=== PATIENT | male | born 1960 | race Caucasian/White ===

== ENCOUNTER 2016-04-09 08:00 | Outpatient (CLI) | payer MEDICARE, MEDICAID | END 2016-04-09 08:01 | disposition home or self-care (01) | DX: R39.9 Unspecified symptoms and signs involving the genitourinary system (principal); R39.11 Hesitancy of micturition ==

== ENCOUNTER 2016-05-22 10:15 | Emergency (ER) | payer MEDICARE, MEDICAID | END 2016-05-22 13:58 | disposition home or self-care (01) | DX: R39.12 Poor urinary stream (principal); R35.0 Frequency of micturition; R53.83 Other fatigue; R63.4 Abnormal weight loss; I10 Essential (primary) hypertension; F17.200 Nicotine dependence, unspecified, uncomplicated ==

== ENCOUNTER 2016-11-13 13:14 | Outpatient (CLI) | payer MEDICARE, MEDICAID ==
[2016-11-13] MEDS ORDERED: ALBUTEROL NEB 2.5 MG/3 ML INH ONE (14:00)
== END 2016-11-13 13:15 | disposition home or self-care (01) ==
LOC: RT 13:14
PROVIDERS: ATTEND Nurse Practitioner Family
DX: R06.02 Shortness of breath (principal); F17.210 Nicotine dependence, cigarettes, uncomplicated
CPT/HCPCS: 94060; J7613; 94640

== ENCOUNTER 2017-06-17 09:43 | Outpatient (CLI) | payer MEDICARE, MEDICAID ==
[2017-06-17 17:48] LABS: BASOPHILS % (AUTO) 0.5 %; EOSINOPHILS # (AUTO) 0.3 10^3/uL (0.0-0.7); EOSINOPHILS % (AUTO) 3.6 %; HGB - HEMOGLOBIN 14.7 g/dL (14.0-18.0); LYMPHOCYTES # (AUTO) 1.6 10^3/uL (1.5-3.5); LYMPHOCYTES % (AUTO) 19.3 %; MEAN CORPUSCULAR HEMOGLOBIN 28.6 pg (27.0-31.0); MEAN CORPUSCULAR HGB CONC 33.1 g/dL (32.0-36.0); MEAN CORPUSCULAR VOLUME 86.3 fL (80.0-94.0); MEAN PLATELET VOLUME 9.3 fL (7.4-11.4); MONOCYTES # (AUTO) 0.6 10^3/uL (0.0-1.0); MONOCYTES % (AUTO) 6.8 %; NEUTROPHILS # (AUTO) 5.7 10^3/uL (1.5-6.6); NEUTROPHILS % (AUTO) 69.8 %; PLT - PLATELET COUNT 219 10^3/uL (130-450); RED BLOOD COUNT 5.14 10^6/uL (4.70-6.10); RED CELL DISTRIBUTION WIDTH 14.4 % (12.0-15.0); WHITE BLOOD COUNT 8.2 x10^3/uL (4.8-10.8)
[2017-06-17 17:50] LABS: ALBUMIN 4.5 g/dL (3.2-5.5); ALBUMIN/GLOBULIN RATIO 1.7 (1.0-2.2); ALKALINE PHOSPHATASE 51 IU/L (42-121); ALT ALANINE AMINOTRANSFERASE 15 IU/L (10-60); AST ASPARTATE AMINOTRANSFERASE 18 IU/L (10-42); BILIRUBIN,TOTAL 0.8 mg/dL (0.2-1.0); BUN - BLOOD UREA NITROGEN 14 mg/dL (6-20); CALCIUM 9.1 mg/dL (8.5-10.3); CARBON DIOXIDE - CO2 28 mmol/L (21-32); CHLORIDE 101 mmol/L (101-111); CHOL/HDL RATIO 4.3 (<5.0); CHOLESTEROL 176 mg/dL; CREATININE 0.8 mg/dL (0.6-1.2); GFR - MDRD 100 (>89); GLUCOSE 106 mg/dL (70-100); HDL CHOLESTEROL 41 mg/dL; LDL CHOLESTEROL,CALCULATED 118 mg/dL; LDL/HDL RATIO 2.9 (<3.6); SODIUM 135 mmol/L (135-145); TOTAL PROTEIN 7.1 g/dL (6.7-8.2); VLDL CHOLESTEROL 17 mg/dL
== END 2017-06-17 09:44 | disposition home or self-care (01) ==
LOC: LAB.F 09:43
PROVIDERS: ATTEND Nurse Practitioner Family
DX: I10 Essential (primary) hypertension (principal); Z12.5 Encounter for screening for malignant neoplasm of prostate; E78.2 Mixed hyperlipidemia
CPT/HCPCS: 36415; 80053; 80061; 84443; 85025; G0103; 83721; 84153

== ENCOUNTER 2017-06-21 08:00 | Outpatient (CLI) | payer MEDICARE, MEDICAID ==
[2017-06-21 18:03] LABS: PSA FREE 0.8 ng/mL (0.16-2.81)
[2017-06-21 18:04] LABS: PSA TOTAL 5.74 ng/mL (0.000-2.000)
== END 2017-06-21 08:01 ==
LOC: LAB.S 08:00
PROVIDERS: ATTEND Nurse Practitioner Family
DX: R97.20 Elevated prostate specific antigen [PSA] (principal)
CPT/HCPCS: 36415; 84154

== ENCOUNTER 2017-12-08 11:06 | Outpatient (CLI) | payer MEDICAID, MEDICARE ==
[2017-12-08 17:51] LABS: PSA FREE 0.84 ng/mL (0.16-2.81)
[2017-12-08 17:52] LABS: PSA TOTAL 5.37 ng/mL (0.000-2.000)
== END 2017-12-08 11:07 | disposition home or self-care (01) ==
LOC: LAB.F 11:06
PROVIDERS: ATTEND Nurse Practitioner Family
DX: R97.20 Elevated prostate specific antigen [PSA] (principal)
CPT/HCPCS: 36415; 84154

== ENCOUNTER 2017-12-27 21:38 | Outpatient (CLI) | payer MEDICARE | END 2017-12-27 21:39 | disposition critical access hospital (66) | LOC: EMS 21:38 | PROVIDERS: ATTEND Surgery | DX: R46.4 Slowness and poor responsiveness (principal); R09.89 Other specified symptoms and signs involving the circulatory and respiratory systems | CPT/HCPCS: A0425; A0427 ==

== ENCOUNTER 2017-12-27 22:07 | Observation (INO) | payer MEDICARE ==
[2017-12-27] MEDS ORDERED: FUROSEMIDE 40 MG/4 ML VIAL IVP STA (22:24)
--- NOTE | 2017-12-27 22:27 | ED Physician Documentation ---
PD HPI DYSPNEA - Stated complaint Stated Complaint: ALOC / LOWER EDEMA - Chief complaint Chief Complaint: Resp - History obtained from History obtained from: Patient, EMS - History of Present Illness Timing - onset: Today Timing - onset during: Rest Timing - duration: Minutes Timing - details: Abrupt onset, Still present Inciting event(s): Other Improved by: BiPAP / CPAP, Inhaler/neb Worsened by: Exertion, Coughing Associated symptoms: Cough, Diaphoresis, Bilateral edema Similar symptoms before: Has not had sx before Recently seen: Clinic - Additional information Additional information: 57-year-old male with a history of bipolar disorder has recently been into see the urologist about his weak urinary stream and is been put on tamsulosin. This evening he was found obtunded at his home with his roommate there. The patient last remembers watching TV drinking beer and smoking pot. He does state that he has had some chills recently but other otherwise has not been ill. He does have some twitching of his legs that he thinks might be related to his lithium. These seem to happen when he is tired. Medics picked the patient up at his house obtunded not breathing well they administered a DuoNeb treatment and placed him on CPAP which made a tremendous improvement. They noted rails bibasilar. Review of Systems Constitutional: reports: Chills. denies: Fever Eyes: denies: Decreased vision Ears: denies: Ear pain Nose: denies: Rhinorrhea / runny nose, Congestion Throat: reports: Dental pain / toothache (A bad tooth on the left lower). denies: Sore throat Cardiac: denies: Chest pain / pressure, Palpitations Respiratory: reports: Dyspnea, Cough GI: denies: Abdominal Pain, Nausea, Vomiting : reports: Other (stream has improved dramatically with the medication). denies: Dysuria, Frequency Skin: denies: Rash Musculoskeletal: reports: Extremity swelling (similar to always). denies: Neck pain, Back pain, Extremity pain Neurologic: denies: Generalized weakness, Focal weakness, Numbness PD PAST MEDICAL HISTORY - Past Medical History Past Medical History: Yes Cardiovascular: Congestive heart failure, Hypertension Respiratory: Sleep apnea Endocrine/Autoimmune: None GI: GERD Psych: Bipolar disorder - Past Surgical History Past Surgical History: Yes General: Cholecystectomy - Present Medications Home Medications: Ambulatory Orders Medication Instructions Recorded Confirmed Lisinopril 20 mg PO DAILY 05/21/14 07/27/14 Omeprazole 20 mg PO DAILY 05/21/14 07/27/14 Quetiapine Fumarate [Seroquel] 200 mg PO DAILY 05/21/14 05/22/16 Ziprasidone [Geodon] 80 mg PO BID 05/21/14 05/22/16 lamoTRIgine [Lamictal] 150 mg PO BID 05/21/14 07/27/14 Lisinopril 20 mg PO DAILY #60 tablet 07/27/14 05/22/16 Omeprazole 20 mg PO DAILY #60 capsule. 07/27/14 05/22/16 Quetiapine Fumarate [Seroquel] 3 tab PO QPM #180 tablet 07/27/14 Ziprasidone HCl [Geodon] 80 mg PO BID #120 capsule 07/27/14 lamoTRIgine [Lamictal] 150 mg PO BID #120 tablet 07/27/14 05/22/16 Cholecalciferol (Vitamin D3) 2,000 unit PO DAILY #90 capsule 05/22/16 [Vitamin D] Saw Alpha 160 mg PO DAILY #60 capsule 05/22/16 - Allergies Allergies/Adverse Reactions: Allergies Allergy/AdvReac Type Severity Reaction Status Date / Time No Known Drug Allergies Allergy Verified 12/27/17 22:16 - Social History Does the pt smoke?: Yes Smoking Status: Current every day smoker Does the pt drink ETOH?: Yes ETOH Use: Beer Does the pt have substance abuse?: Yes Substance Use and Type: Marijuana - Immunizations Immunizations are current?: Yes - POLST Patient has POLST: No PD ED PE NORMAL - Vitals Vital signs reviewed: Yes (hypertensive ) - General General: Alert and oriented X 3, Well developed/nourished, Other (talking easily through the CPAP mask) - HEENT HEENT: Atraumatic, PERRL, EOMI, Other (There is swelling and erythema to the posterior pharynx with the uvula nearly obtructing the airway. There is a bad tooth on the left lower molar. This tooth is filled and there is no obvious drainage or swelling. It is tender to tapping. ) - Neck Neck: Supple, no meningeal sign, No bony TTP - Cardiac Cardiac: RRR, No murmur - Respiratory Respiratory: Other (tachypneic at rest with bibasilar rales ) - Abdomen Abdomen: Soft, Non tender, Other (obese) - Back Back: No CVA TTP, No spinal TTP - Derm Derm: Normal color, Warm and dry, No rash - Extremities Extremities: No deformity, Normal ROM s pain, Other (There are some twitches that occur periodically where he moves both legs like he has to urinate. There is pitting edema to both lower ext. ) - Neuro Neuro: Alert and oriented X 3, aquatic ecologist 2-12 intact, No motor deficit, No sensory deficit, Normal speech Results - Vitals Vitals: Vital Signs - 24 hr 12/27/17 12/27/17 22:03 22:23 Temperature 36.2 C L Heart Rate 89 91 Respiratory 24 36 H Rate Blood Pressure 166/94 H 166/94 H O2 Saturation 100 100 Oxygen O2 Source BIPAP - EKG (time done) 2214 Rate: Rate (enter#) (87) Rhythm: NSR, Other (PVC's) Intervals: RBBB Compare to prior EKG: Old EKG unavailable Computer interpretation: Agree with computer - Rads (name of study) 1 veiw chest Radiology: Prelim report reviewed (Impression: Hyperinflation, but no evidence of acute cardiopulmonary disease.), EMP read indepedently, See rad report Procedures - IVC sono (time) 2220 Bedside IVC sono: IVC measures (cm) (2.49), IVC collapsed c insp (cm) (1.77), Collapsibility index (0.28), High CVP, Fluid overload PD MEDICAL DECISION MAKING - ED course Complexity details: reviewed results, re-evaluated patient, considered differential, d/w patient ED course: 57-year-old male with a history of bipolar affective disorder has been found at his home unresponsive with obvious obvious respiratory distress and he is transported to the hospital with improvement with use of CPAP and a DuoNeb treatment. On arrival to the emergency department he is much improved but does appear to be in some mild failure and is administered intravenous Lasix. He has continued improvement in his airway movement and on more detailed examination he does appear to have a significant amount of erythema and swelling to the posterior pharynx with a broad uvula and he is on lisinopril. He is administered dexamethasone 10 mg intravenously. He was concerned about the possibility of lithium toxicity and it appears he may not even be taking his lithium. Dr. Abdifatah Gudino is consulted in the case comes to the emergency department to evaluate the patient and will admit the patient to the hospital for continued care. He does appear to have sleep apnea on bedside examination when the patient falls asleep. In addition he does have some lower extremity edema bilaterally and a TSH is added onto his laboratory studies. He appears to have short shallow breaths with a high frequency and improvement with CPAP. A wide differential underlying this patients presentation tonight leaves the primary diagnosis as hypercapnic respiratory failure to describe his condition and further work up is needed to determine the cause of the hypercapnic failure. - Sepsis Event Vital Signs: Vital Signs - 24 hr 12/27/17 12/27/17 22:03 22:23 Temperature 36.2 C L Heart Rate 89 91 Respiratory 24 36 H Rate Blood Pressure 166/94 H 166/94 H O2 Saturation 100 100 Oxygen O2 Source BIPAP Departure - Departure Disposition: ED Place in Observation Clinical Impression: Respiratory failure Qualifiers: Chronicity: acute Respiratory failure complication: hypercapnia Qualified Code(s): J96.02 - Acute respiratory failure with hypercapnia Condition: Serious Discharge Date/Time: 12/28/17 00:57
[2017-12-27 22:39] LABS: BASOPHILS % (AUTO) 0.1 %; EOSINOPHILS % (AUTO) 0.3 %; HGB - HEMOGLOBIN 14.4 g/dL (14.0-18.0); LYMPHOCYTES # (AUTO) 0.3 10^3/uL (1.5-3.5); LYMPHOCYTES % (AUTO) 1.9 %; MEAN CORPUSCULAR HEMOGLOBIN 30.1 pg (27.0-31.0); MEAN CORPUSCULAR HGB CONC 33.6 g/dL (32.0-36.0); MEAN CORPUSCULAR VOLUME 89.3 fL (80.0-94.0); MEAN PLATELET VOLUME 7.6 fL (7.4-11.4); MONOCYTES # (AUTO) 0.1 10^3/uL (0.0-1.0); NEUTROPHILS # (AUTO) 12.9 10^3/uL (1.5-6.6); NEUTROPHILS % (AUTO) 96.7 %; PLT - PLATELET COUNT 180 10^3/uL (130-450); RED BLOOD COUNT 4.78 10^6/uL (4.70-6.10); RED CELL DISTRIBUTION WIDTH 13.6 % (12.0-15.0); WHITE BLOOD COUNT 13.4 x10^3/uL (4.8-10.8)
[2017-12-27 22:54] LABS: BILIRUBIN,URINE NEGATIVE (NEGATIVE); GLUCOSE, URINE (UA) NEGATIVE (NEGATIVE); KETONES,URINE (UA) NEGATIVE (NEGATIVE); LEUKOCYTE ESTERASE, URINE NEGATIVE (NEGATIVE); NITRITE,URINE NEGATIVE (NEGATIVE); OCCULT BLOOD,URINE NEGATIVE (NEGATIVE); PH,URINE 5.5 PH (5.0-7.5); PROTEIN,URINE TRACE mg/dL (NEGATIVE); UROBILINOGEN,URINE 0.2 (NORMAL) E.U./dL (NORMAL)
[2017-12-27 22:56] LABS: ALBUMIN 3.7 g/dL (3.2-5.5); ALBUMIN/GLOBULIN RATIO 1.3 (1.0-2.2); BILIRUBIN,TOTAL 0.8 mg/dL (0.2-1.0); CALCIUM 8.3 mg/dL (8.5-10.3); CREATININE 0.6 mg/dL (0.6-1.2); TOTAL PROTEIN 6.5 g/dL (6.7-8.2)
[2017-12-27 22:59] LABS: CLARITY,URINE CLEAR (CLEAR)
--- NOTE | 2017-12-27 23:00 | XRAY Report ---
Reason: SOA rales Procedure Date: 12/27/2017 Accession Number: [id number] / [id number] Procedure: XR - Chest 1 View X-Ray CPT Code: 99361 FULL RESULT: EXAM: CHEST RADIOGRAPHY EXAM DATE: 12/27/2017 10:42 PM. CLINICAL HISTORY: SOA rales. COMPARISON: CHEST 2 VIEW PA/LAT 05/22/2016 1:00 PM. TECHNIQUE: 1 view. FINDINGS: Lungs/Pleura: The lungs are hyperinflated. No focal consolidation, effusion, or pneumothorax is appreciated. Mediastinum: Likely hiatal hernia. No cardiomegaly. Other: None. IMPRESSION: Hyperinflation, but no evidence of acute cardiopulmonary disease. [facility]
[2017-12-27 23:27] LABS: LITHIUM < 0.05 mmol/L
[2017-12-27] MEDS ORDERED: IPRATROPIUM/ALBUTEROL 3 ML NEB INH STA (23:33)
[2017-12-27] MEDS ORDERED: DEXAMETHASONE 10 MG/ML VIAL IVP STA (23:38)
[2017-12-28 00:01] LABS: ABG PCO2 53 mmHg (34-45); ABG PH 7.35 (7.35-7.45)
[2017-12-28 00:02] LABS: ABG BASE EXCESS 1.5 mmol/L (-2.0-3.0); ABG HCO3 28.3 mmol/L (22.0-26.0); ABG OXYGEN SATURATION 100 % (94-98); ABG PO2 451 mmHg (80-100); ABG TCO2 29.9 MMOL/L (21.0-29.0); ALLEN TEST POSITIVE
[2017-12-28] MEDS ORDERED: ONDANSETRON 4 MG/2 ML VIAL IVP PRN (00:04)
[2017-12-28] MEDS ORDERED: ACETAMINOPHEN 325 MG TABLET PO PRN (00:04)
[2017-12-28] MEDS ORDERED: PROMETHAZINE 25 MG/1 ML VIAL IM PRN (00:04)
[2017-12-28] MEDS ORDERED: IBUPROFEN 600 MG TABLET PO PRN (00:04)
[2017-12-28] MEDS ORDERED: PROCHLORPERAZINE 10 MG/2 ML VIAL IVP PRN (00:04)
[2017-12-28] MEDS ORDERED: SODIUM CHLORIDE FLUSH 0.9% 10 ML SYRINGE IVP PRN (00:04)
[2017-12-28 00:12] LABS: MUDS CUTOFF CONCENTRATIONS CUTOFF CONC BELOW:
[2017-12-28 00:26] LABS: AMPHETAMINE SCREEN,URINE NEGATIVE (NEGATIVE); BENZODIAZEPINES SCREEN, URINE NEGATIVE (NEGATIVE); COCAINE SCREEN URINE NEGATIVE (NEGATIVE); METHADONE SCREEN, URINE NEGATIVE (NEGATIVE); METHAMPHETAMINES SCREEN, URINE NEGATIVE (NEGATIVE); OPIATE SCREEN, URINE NEGATIVE (NEGATIVE); OXYCODONE SCREEN, URINE NEGATIVE (NEGATIVE); PROPOXYPHENE SCREEN, URINE NEGATIVE (NEGATIVE); TRICYCLIC ANTIDEPRESSANT,URINE NEGATIVE (NEGATIVE)
[2017-12-28] MEDS ORDERED: diphenhydrAMINE INJ 50 MG/ML VIAL IVP SCH (01:00)
[2017-12-28] MEDS ORDERED: SODIUM CHLORIDE 0.9% 1,000 ML IV SCH (01:00)
[2017-12-28] MEDS ORDERED: IPRATROPIUM/ALBUTEROL 3 ML NEB INH PRN (01:13)
--- NOTE | 2017-12-28 01:31 | HISTORY & PHYSICAL EXAMINATION ---
Chief Complaint - Chief Complaint Chief Complaint: Unresponsive History of Present Illness - Admitted From Admitted From:: Emergency Department - History Obtained From Records Reviewed: Yes History obtained from: Patient and medical records Exam Limitations: Patient very sleepy and drowsy during history taking - History of Present Illness HPI Comment/Other: Patient is an obese 57-year-old male with a past medical history significant for bipolar disorder, hypertension, GERD, BPH, seizure disorder and previous diagnosis of obstructive sleep apnea without use of CPAP who presented to the emergency department after he was found to be unresponsive at home. According to the patient's roommate who was the one that called 911. The patient drank a sixpack of beer and smoked some marijuana earlier in the night and he became extremely lethargic. She states that he was going in and out of consciousness while he was speaking to her. She stated eventually he became unresponsive and despite her trying to wake him he was not waking up. She also states that he did not appear to be breathing. At that point she decided to call 911. The patient denies having any difficulty breathing prior to this episode. He also denies any chest pain or palpitations. He denies any kind of choking feeling or swelling up of his throat. He does admit to having a cough that is been ongoing for several days. He also admits to feeling chills earlier. His main complaint however is that he is just really really sleepy. He states that he is not been able to sleep for several days and now just wants to sleep. He denies any fevers, urinary urgency, urinary frequency or dysuria. The patient does admit to having a toothache for which he is supposed to see a dentist. The patient also admits to a sore throat. The patient is quite diaphoretic on examination and also appears to be having episodes of twitching while in the bed. When asked about this the patient states that he is always sweaty and these twitches have been going on for several years. Patient denies any headaches, blurred vision, runny nose, nasal congestion, difficulty swallowing, increased lower extremity swelling, abdominal pain, nausea, vomiting, diarrhea, constipation, joint swelling, muscle aches, joint pain, back pain, neck stiffness, recent unintentional weight loss, polyuria, polydipsia, changes in his appetite, night sweats or any focal neurologic deficits. When paramedics arrived at the scene the patient was found to be obtundent with decreased respiratory rate. According to the paramedics the patient was not breathing at all and his initial oxygen saturation was in the 50s. The patient was immediately placed on oxygen and initial thought was to intubate the patient however they decided to try BiPAP prior to intubation. After being placed on BiPAP the patient appeared to respond quite quickly as he became more alert and started moving around. The patient was brought to the emergency department on the BiPAP. On presentation to the emergency department the patient was afebrile and slightly hypertensive with a heart rate of 89. The patient was tachypneic and saturating at 100% on BiPAP with an FiO2 of 100. The patient's initial ABG showed a pH of 7.34 with a PCO2 of 54 and the patient was oxygenating well. This ABG was taken on BiPAP. The patient underwent routine lab work which showed a mild leukocytosis of 13.4 and a mildly elevated BNP of 169 but otherwise lab work was within normal limits. The patient's UA was negative. The patient is on lithium therefore lithium level was checked which was less than 0.05. The patient's lactic acid was 1.1 and his urine tox was positive only for cannabinoids and his alcohol level was 25. The patient was initially treated with a DuoNeb which he stated improved his breathing. He was also given 1 dose of IV Lasix 40 mg and a dose of 10 mg of IV Decadron. The patient's EKG showed a sinus rhythm with a right bundle branch block with no ST elevations or ischemic changes. The patient's initial troponin was negative. The patient also underwent a chest x-ray which revealed hyperinflation but no evidence for acute cardiopulmonary disease. The patient was taken off of BiPAP and once BiPAP was removed the patient became increasingly lethargic having apneic episodes while in the emergency department. The patient was found to have a slightly swollen uvula but was not having any sensation of choking or feeling as though his throat was closing in on him. Given the patient's hypercapnic respiratory failure and incomplete resolution of symptoms in the emergency department the patient was placed in observation and continued on BiPAP into the night for hypercapnic respiratory failure. History - Past Medical History Cardiovascular: reports: Hypertension, Other (Obesity) Respiratory: reports: Sleep apnea, Other Neuro: reports: Seizure disorder Endocrine/Autoimmune: reports: None GI: reports: GERD : reports: Benign prostate hypertrophy Psych: reports: Bipolar disorder MRSA Hx?: No - Past Surgical History General: reports: Cholecystectomy - Family & Social History Family History: Mother: CVA/TIA, Father: , Cancer (Lung cancer), Sister: Alive and Well Living arrangement: At home Living Situation: Other (With roommate) Social History Notes: The patient is originally from [place], [place] and moved to [facility] with his parents when he was still young. He currently lives in [place], [place] with his roommate. He is a present a smoker and smokes 1-1/2 packs of cigarettes daily, he occasionally drinks alcohol and smokes marijuana on a daily basis. - POLST Patient has POLST: No Meds/Allgy - Home Medications Home Medications: Ambulatory Orders Medication Instructions Recorded Confirmed Lisinopril 20 mg PO DAILY 05/21/14 07/27/14 Omeprazole 20 mg PO DAILY 05/21/14 07/27/14 Quetiapine Fumarate [Seroquel] 200 mg PO DAILY 05/21/14 05/22/16 Ziprasidone [Geodon] 80 mg PO BID 05/21/14 05/22/16 lamoTRIgine [Lamictal] 150 mg PO BID 05/21/14 07/27/14 Lisinopril 20 mg PO DAILY #60 tablet 07/27/14 05/22/16 Omeprazole 20 mg PO DAILY #60 capsule. 07/27/14 05/22/16 Quetiapine Fumarate [Seroquel] 3 tab PO QPM #180 tablet 07/27/14 Ziprasidone HCl [Geodon] 80 mg PO BID #120 capsule 07/27/14 lamoTRIgine [Lamictal] 150 mg PO BID #120 tablet 07/27/14 05/22/16 Cholecalciferol (Vitamin D3) 2,000 unit PO DAILY #90 capsule 05/22/16 [Vitamin D] Saw [place] 160 mg PO DAILY #60 capsule 05/22/16 - Allergies Allergies/Adverse Reactions: Allergies Allergy/AdvReac Type Severity Reaction Status Date / Time No Known Drug Allergies Allergy Verified 12/27/17 22:16 Review of Systems - Other Findings Other Findings: A comprehensive review of systems was performed the pertinent positives and negatives are stated above in the HPI and the remainder of the review of systems is negative. Prior Level of Functionality: The patient is completely independent with all his activities of daily living. He is not using any assistance device for ambulation and lives with a roommate. Exam - Vital Signs Reviewed Vital Signs: Yes Vital Signs: Vital Signs x48h Temp Pulse Resp BP Pulse Ox 12/28/17 00:22 36.4 C L 12/28/17 00:10 89 29 H 181/103 H 97 12/27/17 23:47 84 12/27/17 23:43 93 20 12/27/17 23:10 90 23 163/94 H 100 12/27/17 22:24 85 12/27/17 22:23 91 36 H 166/94 H 100 12/27/17 22:03 36.2 C L 89 24 166/94 H 100 - Physical Exam General Appearance: positive: Mild distress (Patient has an odd pattern of breathing where he takes shallow breaths and is tachypneic), Lethargic (The patient appears to be very lethargic and continually dozes off during my history taking. When he does doze off it is very apparent that the patient has obstructive sleep apnea as he has multiple apneic episodes per minute.) Eyes Bilateral: positive: Normal inspection, PERRL, EOMI, No lid inflammation, Conjunctivae nml, No scleral icterus ENT: positive: Pharynx nml, No signs of dehydration, Other (The patient does appear to have a large uvula but does not appear to have any stridor or difficulty breathing.). negative: Purulent nasal drainage, Pharyngeal erythema, Oral lesions Neck: positive: Thyroid nml, No JVD, Trachea midline, Other (Very large neck). negative: Thyromegaly, Lymphadenopathy (R), Lymphadenopathy (L), Stiff neck, Carotid bruit, Tracheal deviation Respiratory: positive: Chest non-tender, Rales (Basis), Other (Distant breath sounds, Tachypneic with shallow breathing, Apneic episodes and lethargy) Cardiovascular: positive: Regular rate & rhythm, No murmur, No gallop Peripheral Pulses: positive: 2+ Abdomen: positive: Non-tender, No organomegaly, Nml bowel sounds, No distention, Other (Obese). negative: Guarding, Rebound Back: positive: Nml inspection. negative: CVA tenderness (R), CVA tenderness (L) Skin: positive: Color nml, No rash, Warm, Diaphoresis. negative: Cyanosis, Pallor Extremities: positive: Non-tender, Full ROM, Nml appearance, No pedal edema Neurologic/Psychiatric: positive: Oriented x3, CN's nml (2-12), Motor nml, Sensation nml, Mood/affect nml, Other (Very lethargic but when awake able to answer questions appropriately. When speaking he does not appear to be in respiratory distress.) Conclusion/Plan - Problem List (1) Acute hypercapnic respiratory failure Conclusion/Plan: The patient was brought into the emergency department after his roommate found him to be less and less responsive to the point where the patient was unresponsive and did not appear to be breathing. When EMS found the patient at scene he was found to have an oxygen saturation of 50% and was apneic. Once patient was placed on CPAP he did seem to respond quite quickly. The patient had been drinking a sixpack of beer earlier in the night and had smoked some ma rijuana. The patient does not appear to have a history of COPD and was not wheezing on presentation to the ER. The patient seemed to continue to improve with BiPAP. On presentation the patient did have a CO2 that was elevated at 54 despite being on BiPAP. The patient's chest x-ray did not show any evidence of pneumonia. Although the patient's uvula was swollen he did not appear to be having respiratory distress per se and he also did not complain of feeling of his throat closing up on him. The patient did not have stridor on examination. The patient had no fever on presentation and his lactic acid was normal. The patient was having episodes of apnea once the BiPAP was removed. These episodes occurred when the patient would doze off to sleep. He was having many episodes per minute. It does not appear to me that the patient has infection or COPD exacerbation or angioedema. It appears that the most likely cause of his presentation with unresponsiveness and hypercapnic respiratory failure is a combination of progressive untreated obstructive sleep apnea and likely oversedation with his long-term antipsychotic medication in conjunction with alcohol and marijuana. The patient also states he has not been able to sleep for several days which could also have been causing him to be less responsive. It appears the patient lately developed hypercapnia over a long period of time to the point where he became very sedated and was unresponsive when found by paramedics. Plan: Place patient in the ICU on observation Continue patient on BiPAP and monitor overnight Give patient IV fluids and hold sedative medications for now Once patient is more alert and awake we will remove BiPAP and assess patient's respiratory status at that time. We will place patient on duo nebs [id number] and IV steroids as he is a smoker and may also have some COPD. Patient will be placed on IV Pepcid and IV Benadryl and lisinopril will be held as there was some concern for swelling of his uvula to treat for angioedema. We will get a CT angiogram of the lungs to rule out pulmonary embolism Monitor closely (2) CONSTANTINE (obstructive sleep apnea) Conclusion/Plan: The patient states that he has had a sleep study in the past and been told that he has obstructive sleep apnea. The patient was told to wear a CPAP at night but has never followed through. The patient has obvious sleep apnea on examination in the emergency department with multiple episodes of apnea leading to hypoxemia per minute in the emergency department. It is possible that the p atient has been having longtime chronic sleep apnea which is slowly caused increasing hypercapnia and in the setting today of oversedation from alcohol and prescription medication the patient may have become obtundent, apneic and hypercapnic with respiratory failure. Plan: Patient will be placed on BiPAP at night We will monitor the patient off BiPAP in the morning. Patient will be encouraged to start wearing a CPAP machine once he returns home. (3) Tooth infection Conclusion/Plan: The patient has been having a toothache. He does appear to have a possibly infected tooth in the left lower molar. Plan: Patient will be placed on oral Augmentin for possible tooth infection Patient will follow up with a dentist as an outpatient (4) Hypertension Conclusion/Plan: The patient has a history of hypertension and on presentation is very hypertensive with blood pressures of 160s over 90s. For now we will hold the patient's lisinopril given this concern for possible angioedema. We will continue to monitor his blood pressure and treat him with IV antihypertensives as needed. Qualifiers: Hypertension type: essential hypertension Qualified Code(s): I10 - Essential (primary) hypertension (5) Tobacco abuse Conclusion/Plan: The patient states he smokes 1-1/2 packs of cigarettes a day. The patient was counseled and he will be placed on a nicotine patch while he is hospitalized. (6) GERD (gastroesophageal reflux disease) Conclusion/Plan: The patient has a history of GERD and will be placed on IV Pepcid while he is hospitalized. Qualifiers: Esophagitis presence: without esophagitis Qualified Code(s): K21.9 - [place] stro-esophageal reflux disease without esophagitis (7) Bipolar affective disorder Conclusion/Plan: The patient has a history of bipolar disorder. He is on multiple medications including Lamictal, Seroquel and Geodon. All these medications can cause sedati on and could have been contributing to his presentation of unresponsiveness. The patient's mood appears to be stable and he continues to be very lethargic. These medications will be held for now and resumed when the patient is more alert and oriented. - Lab Results Lab results reviewed: Yes Fish Bones: 12/27/17 22:30 12/27/17 22:30 Other Lab Results: Laboratory Results WBC 13.4 x10^3/uL (4.8-10.8) H 12/27/17: RBC 4.78 10^6/uL (4.70-6.10) 12/27/17 22:30 Hgb 14.4 g/dL (14.0-18.0) 12/27/17:30 Hct 42.7 % (42.0-52.0) 12/27/17 22:30 MCV 89.3 fL (80.0-94.0) 12/27/17 22: MCH 30.1 pg (27.0-31.0) 12/27/17: MCHC 33.6 g/dL (32.0-36.0) 12/27/17 22:30 RDW 13.6 % (12.0-15.0) 12/27/17:30 Plt Count 180 10^3/uL (130-450) 12/27/17 22:30 MPV 7.6 fL (7.4-11.4) 12/27/17 22:30 Neut # (Auto) 12.9 10^3/uL (1.5-6.6) H 12/27/17 22:30 Lymph # (Auto) 0.3 10^3/uL (1.5-3.5) L 12/27/17 22:30 [place] # (Auto) 0.1 10^3/uL (0.0-1.0) 12/27/17 22:30 Eos # (Auto) 0.0 10^3/uL (0.0-0.7) 12/27/17 22:30 Baso # (Auto) 0.0 10^3/uL (0.0-0.1) 12/27/17 22:30 Absolute Nucleated RBC 0.01 x10^3/uL 12/27/17 22:30 Nucleated RBC % 0.1 /100WBC 12/27/17 22:30 Bld Gas Analysis Time 0138 12/28/17 01:36 Sample Site RIGHT RADIAL 12/28/17 01:36 ABG pH 7.44 (7.35-7.45) 12/28/17 01:36 ABG pCO2 37 mmHg (34-45) 12/28/17 01:36 ABG pO2 58 mmHg (80-100) L 12/28/17 01:36 ABG HCO3 24.2 mmol/L (22.0-26.0) 12/28/17 01:36 ABG Total CO2 25.4 MMOL/L (21.0-29.0) 12/28/17 01:36 ABG O2 Saturation 91 % (94-98) L 12/28/17 01:36 ABG Oximetry Spot Check 92 % 12/28/17 01:36 ABG Base Excess 0.5 mmol/L (-2.0-3.0) 12/28/17 01:36 David Test POSITIVE 12/28/17 01:36 Respiration Rate 20 b/min 12/27/17 23:30 O2 Delivery Device BiPAP 12/27/17 23:30 FiO2 100.00 12/27/17 23:30 PEEP 5 cmH2O 12/27/17 23:30 Pressure Support Vent 7 cmH2O 12/27/17 23:30 EPAP 5 cmH2O 12/27/17 23:30 IPAP 12 cmH2O 12/27/17 23:30 Sodium 136 mmol/L (135-145) 12/27/17 22:30 Potassium 3.7 mmol/L (3.5-5.0) 12/27/17 22:30 Chloride 99 mmol/L (101-111) L 12/27/17 22:30 Carbon Dioxide 27 mmol/L (21-32) 12/27/17 22:30 Anion Gap 10.0 (6-13) 12/27/17 22:30 BUN 9 mg/dL (6-20) 12/27/17 22:30 Creatinine 0.6 mg/dL (0.6-1.2) 12/27/17 22:30 Estimated GFR (MDRD) 139 (>89) 12/27/17 22:30 Glucose 96 mg/dL (70-100) 12/27/17 22:30 Lactic Acid 1.1 mmol/L (0.5-2.2) 12/27/17 22:45 Calcium 8.3 mg/dL (8.5-10.3) L 12/27/17 22:30 Total Bilirubin 0.8 mg/dL (0.2-1.0) 12/27/17 22:30 AST 15 IU/L (10-42) 12/27/17 22:30 ALT 18 IU/L (10-60) 12/27/17 22:30 Alkaline Phosphatase 61 IU/L (42-121) 12/27/17 22:30 Troponin I < 0.04 ng/mL (<0.49) 12/27/17 22:30 B-Natriuretic Peptide 169 pg/mL (5-100) H 12/27/17 22:30 Total Protein 6.5 g/dL (6.7-8.2) L 12/27/17 22:30 Albumin 3.7 g/dL (3.2-5.5) 12/27/17 22:30 Globulin 2.8 g/dL (2.1-4.2) 12/27/17 22:30 Albumin/Globulin Ratio 1.3 (1.0-2.2) 12/27/17 22:30 Lipase 30 U/L (22-51) 12/27/17 22:30 Urine Color YELLOW 12/27/17:45 Urine Clarity CLEAR (CLEAR) 12/27/17:45 Urine pH 5.5 PH (5.0-7.5) 12/27/17 22:45 Ur Specific [place] 1.020 (1.002-1.030) 12/27/17 22:45 Urine Protein TRACE mg/dL (NEGATIVE) 12/27/17:45 Urine Glucose (UA) NEGATIVE mg/dL (NEGATIVE) 12/27/17 22:45 Urine Ketones NEGATIVE mg/dL (NEGATIVE) 12/27/17 22:45 Urine Occult Blood NEGATIVE (NEGATIVE) 12/27/17 22:45 Urine Nitrite NEGATIVE (NEGATIVE) 12/27/17 22:45 Urine Bilirubin NEGATIVE (NEGATIVE) 12/27/17 22:45 Urine Urobilinogen 0.2 (NORMAL) E.U./dL (NORMAL) 12/27/17 22:45 Ur Leukocyte Esterase NEGATIVE (NEGATIVE) 12/27/17 22:45 Ur Microscopic Review NOT INDICATED 12/27/17 22:45 Urine Culture Comments NOT INDICATED 12/27/17 22:45 Last Dose Date UNK 12/27/17 22:45 Last Dose Time UNK 12/27/17 22:45 Urine Opiates Screen NEGATIVE (NEGATIVE) 12/28/17 00:12 Ur Oxycodone Screen NEGATIVE (NEGATIVE) 12/28/17 00:12 Urine Methadone Screen NEGATIVE (NEGATIVE) 12/28/17 00:12 Ur Propoxyphene Screen NEGATIVE (NEGATIVE) 12/28/17 00:12 Ur Barbiturates Screen NEGATIVE (NEGATIVE) 12/28/17 00:12 Ur Tricyclics Screen NEGATIVE (NEGATIVE) 12/28/17 00:12 Ur Phencyclidine Scrn NEGATIVE (NEGATIVE) 12/28/17 00:12 Ur Amphetamine Screen NEGATIVE (NEGATIVE) 12/28/17 00:12 U Methamphetamines Scrn NEGATIVE (NEGATIVE) 12/28/17 00:12 U Benzodiazepines Scrn NEGATIVE (NEGATIVE) 12/28/17 00:12 [place] < 0.05 mmol/L 12/27/17 22:45 Urine Cocaine Screen NEGATIVE (NEGATIVE) 12/28/17 00:12 U Cannabinoids Screen POSITIVE (NEGATIVE) H 12/28/17 00:12 Ethyl Alcohol 25.0 mg/dL 12/28/17 00:08 Group A Strep Rapid Negative (Negative) 12/28/17 00:14 - Diagnostic Imaging Results Diagnostic Imaging Results: positive: Final report reviewed Diagnostic Imaging Results Comments: Chest x-ray Impression: Hyperinflation, but no evidence of acute cardiopulmonary disease. - EKG Results EKG Interpreted Independently: Yes EKG Findings: Right bundle branch block with no ST elevations or ischemic changes. Core Measures - Anticipated LOS I expect patient to be DC'd or transferred within 96 hours.: Yes - DVT/VTE - Prophylaxis VTE/DVT Prophylaxis med ordered at admit?: Yes
[2017-12-28] MEDS ORDERED: IOPAMIDOL-300 100 ML VIAL ONE (01:35)
[2017-12-28 01:38] LABS: ABG BASE EXCESS 0.5 mmol/L (-2.0-3.0); ABG HCO3 24.2 mmol/L (22.0-26.0); ABG OXYGEN SATURATION 91 % (94-98); ABG PCO2 37 mmHg (34-45); ABG PH 7.44 (7.35-7.45); ABG PO2 58 mmHg (80-100); ABG TCO2 25.4 MMOL/L (21.0-29.0); ALLEN TEST POSITIVE
[2017-12-28] MEDS ORDERED: IOPAMIDOL-300 100 ML VIAL IVP ONE (02:47)
[2017-12-28] MEDS: FAMOTIDINE 20 MG/50 ML 50 ML IV SCH ×2 (02:48→08:54)
[2017-12-28] MEDS: SODIUM CHLORIDE FLUSH 0.9% 10 ML SYRINGE IVP SCH ×2 (02:49→08:56)
--- NOTE | 2017-12-28 03:23 | CT Report ---
Reason: Presented with hypercapnic respiratory failure Procedure Date: 12/28/2017 Accession Number: [id number] / [id number] Procedure: CT - Chest Angio (PE) CPT Code: FULL RESULT: EXAM: CT ANGIOGRAM CHEST EXAM DATE: 12/28/2017 02:43 AM. CLINICAL HISTORY: Presented with hypercapnic respiratory failure. COMPARISON: None. TECHNIQUE: Routine helical imaging was performed through the chest in the pulmonary arterial phase. IV Contrast: 100 ML ISOVUE 300. Reconstructions: Coronal 3-D MIP reconstructions.Sagittal and coronal. In accordance with CT protocol optimization, one or more of the following dose reduction techniques were utilized for this exam: automated exposure control, adjustment of mA and/or KV based on patient size, or use of iterative reconstructive technique. FINDINGS: Pulmonary Arteries: Diagnostic quality: Adequate through the segmental arteries. No evidence for acute or chronic pulmonary emboli. RV/LV is within normal limits. There is no interventricular septal bowing. There is no reflux of contrast material in the IVC. Lungs/Pleura: No consolidation, nodules, or edema. No effusions or pneumothorax. Mediastinum: Small hernia. No adenopathy. Thoracic Aorta: Unremarkable. Upper Abdomen: Unremarkable. Other: Old, healed rib fractures. IMPRESSION: No evidence of pulmonary embolus. Small hiatal hernia. RADIA
[2017-12-28 05:30] LABS: BASOPHILS # (AUTO) 0.1 10^3/uL (0.0-0.1); BASOPHILS % (AUTO) 0.5 %; EOSINOPHILS % (AUTO) 0.1 %; HGB - HEMOGLOBIN 14.7 g/dL (14.0-18.0); LYMPHOCYTES # (AUTO) 0.2 10^3/uL (1.5-3.5); LYMPHOCYTES % (AUTO) 0.7 %; MEAN CORPUSCULAR HEMOGLOBIN 30.5 pg (27.0-31.0); MEAN CORPUSCULAR HGB CONC 34.4 g/dL (32.0-36.0); MEAN CORPUSCULAR VOLUME 88.6 fL (80.0-94.0); MEAN PLATELET VOLUME 8.2 fL (7.4-11.4); MONOCYTES # (AUTO) 0.5 10^3/uL (0.0-1.0); MONOCYTES % (AUTO) 1.9 %; NEUTROPHILS # (AUTO) 26.5 10^3/uL (1.5-6.6); NEUTROPHILS % (AUTO) 96.8 %; PLT - PLATELET COUNT 173 10^3/uL (130-450); WHITE BLOOD COUNT 27.4 x10^3/uL (4.8-10.8)
[2017-12-28 05:36] LABS: PT - PROTHROMBIN TIME 11.8 secs (9.9-12.6)
[2017-12-28 05:45] LABS: ALBUMIN 3.8 g/dL (3.2-5.5); ALBUMIN/GLOBULIN RATIO 1.3 (1.0-2.2); BILIRUBIN,TOTAL 1.1 mg/dL (0.2-1.0); CALCIUM 8.5 mg/dL (8.5-10.3); CREATININE 0.7 mg/dL (0.6-1.2); MAGNESIUM 1.9 mg/dL (1.7-2.8); PHOSPHORUS 4.4 mg/dL (2.5-4.6); TOTAL PROTEIN 6.8 g/dL (6.7-8.2)
[2017-12-28] MEDS: methylPREDNISolone SUCCINATE 40 MG/ML VIAL IVP SCH ×2 (05:47→13:36)
[2017-12-28 06:20] LABS: PLATELET ESTIMATE, MANUAL NORMAL (130-450,000) (NORMAL); PLATELET MORPHOLOGY NORMAL APPEARANCE (NORMAL); RBC MORPHOLOGY (MULTIPLE) NORMAL APPEARANCE (NORMAL)
[2017-12-28] MEDS: IPRATROPIUM/ALBUTEROL 3 ML NEB INH SCH ×2 (07:30→11:30)
[2017-12-28] MEDS ORDERED: lamoTRIgine 100 MG TABLET PO SCH (09:00)
[2017-12-28] MEDS ORDERED: POLYETHYLENE GLYCOL 3350 17 GM PACKET PO SCH (09:00)
[2017-12-28] MEDS ORDERED: LAMOTRIGINE 150 MG PO SCH (09:00)
[2017-12-28] MEDS ORDERED: ENOXAPARIN 40 MG/0.4 ML SYRINGE SUBQ SCH (09:00)
[2017-12-28] MEDS ORDERED: ZIPRASIDONE 20 MG CAPSULE PO SCH (09:00)
[2017-12-28] MEDS ORDERED: AMOX/CLAV 875 MG/125 MG TABLET PO SCH (09:00)
[2017-12-28] MEDS ORDERED: CHLORHEXIDINE GLUCONATE 15 ML UDC PO SCH (09:00)
[2017-12-28] MEDS ORDERED: QUEtiapine 100 MG TABLET PO SCH (09:00)
[2017-12-28] MEDS ORDERED: NICOTINE 21 MG PATCH TOP SCH (09:00)
[2017-12-28 17:06] VITALS: BP 125/71
--- NOTE | 2017-12-28 17:15 | Discharge Plan ---
Discharge Plan Disposition: 01 Home, Self Care Condition: Stable Diet: Low Sodium Activity Restrictions: Activity as Tolerated Shower Restrictions: No Driving Restrictions: Yes (You should not be driving while lethargic) Assistance Devices: Other (CPAP needed to be resumed) Weight Bearing: Full Weight Additional Instructions or Follow Up instructions: You were in the hospital for being unconscious from sedatives, alcohol and fatigue. Our staff witnessed you to have severe sleep apnea, which is adding to the extreme fatigue. You need to be re-established with a Sleep Center and restarted on a CPAP device. Please See your PCP JACK to have this done. Resume all your pre-hospital medications. Do not drink alcohol in excess. Do not drive a car or operate heavy machinery when your are sleepy. Come back to the ER if you have new or worsening symptoms. No Smoking: If you smoke, Please STOP! Call for help. Follow-up with: Eloise Hubbard ARNP [Primary Care Provider] -
[2017-12-28] MEDS ORDERED: QUETIAPINE FUMARATE PO SCH (21:00)
--- NOTE | 2017-12-30 14:44 | DISCHARGE SUMMARY ---
Physician: Jessica Muniz MD DATE OF ADMISSION: 12/27/2017 DATE OF DISCHARGE: 12/28/2017 HISTORY OF PRESENT ILLNESS: This is a 57-year-old white male with a history of obesity, bipolar disorder, hypertension, GERD, seizure disorder, BPH, sleep apnea, who has been noncompliant with a CPAP device over the past several years. The patient's roommate called 911 when she found the patient to be unresponsive at home. He had apparently been "sleep-deprived" x2 days, had drunk a 6-pack of beer and used marijuana. He was brought to the emergency room and found to be obtunded, hypercarbic and required BiPAP for ventilation and became more awake. HOSPITAL COURSE AND DISCHARGE DIAGNOSES 1. Acute hypercapnic respiratory failure. The patient's first arterial blood gas showed pH of 7.35, pCO2 of 53, pO2 of 451. He was able to be transitioned from BiPAP with supplemental oxygen to high flow nasal cannula. He was witnessed to have multiple episodes of apnea and then would awaken startled, fall back asleep. CXR was unremarkable. He was lethargic and falling asleep even when speaking to the admitting doctor. His toxicology screen showed positive cannabinoids, alcohol level of 25. After being somnolent for approximately 12 hours, he slowly began to wake more, was able to take his diet, was able to converse, sit up in a chair and was walking in the hallway. At this point, he was felt safe to discharge. 2. Obstructive sleep apnea. The patient reports that he had a sleep study many years ago, used a CPAP mask for a while, it started not to fit and he has not used it for many years. He states that he knows he has to repeat a sleep study to get reconnected with a doctor to order him his CPAP. 3. Tooth infection. The patient is currently on an antibiotic for a tooth infection. When he was more awake, he describes continued minimal pain in that area. His antibiotic was continued and he was discharged with recommendations to finish the course of antibiotics. 4. Hypertension. The patient's blood pressure was 140s/95 on admission. After being more awake and able to have his blood pressure medications dosed, his blood pressure was controlled, 125/69. 5. Tobacco abuse. The patient required a nicotine patch while hospitalized and was advised to stop smoking. 6. Gastroesophageal reflux disease. The patient had no complaints of this during this hospital stay. 7. Bipolar disorder. The patient's medications were restarted when he was more awake. 8. Benign prostatic hypertrophy. The patient had no trouble with urination. His medications were continued. 9. Seizure disorder. The patient's medications were continued while here. LABS AND IMAGING: reviewed and summarized above. ALLERGIES: NONE. MEDICATIONS AT DISCHARGE Unchanged. 1. Finasteride 5 mg daily. 2. Lamictal 150 mg b.i.d. 3. Lisinopril 40 mg daily. 4. Olanzapine 5 mg daily. 5. Flomax 0.4 mg b.i.d. 6. Geodon 80 mg b.i.d. 7. Vitamin D3 2000 units daily. 8. Omeprazole 20 mg daily. 9. Saw palmetto daily. PHYSICAL EXAMINATION AT DISCHARGE VITAL SIGNS: Blood pressure 125/71, pulse of 75, sinus rhythm, room air saturation 92%. HEENT: Unremarkable except he has a very nasal voice. NECK: obese. No JVD is obvious. CHEST: Clear. No wheezes or rales. HEART: Sounds are distant. ABDOMEN: Obese. I cannot rule out organomegaly. Nontender. Normal bowel sounds. EXTREMITIES: Trace pedal edema. No clubbing, cyanosis. NEUROLOGIC: Intact. FOLLOWUP: He was advised to see his PCP in the next 5-7 days. He was reminded to have further management of his sleep apnea more aggressively. CODE STATUS: FULL CODE. Time required to complete this entire discharge, chart review, patient education, dictation: 30 minutes. cc: SOPHIA Lawson TD: 12/30/2017 13:20 MTDD
== END 2017-12-28 18:15 | disposition home or self-care (01) ==
LOC: EDUNIT# → ED 22:07 → ICU 12-28 00:06
PROVIDERS: ADMIT Internal Medicine; ATTEND Internal Medicine
DX: J96.02 Acute respiratory failure with hypercapnia (principal); F17.210 Nicotine dependence, cigarettes, uncomplicated; G47.33 Obstructive sleep apnea (adult) (pediatric); I10 Essential (primary) hypertension; K04.7 Periapical abscess without sinus; K21.9 Gastro-esophageal reflux disease without esophagitis; F31.9 Bipolar disorder, unspecified; Z91.19 Patient's noncompliance with other medical treatment and regimen; E66.9 Obesity, unspecified; Z68.37 Body mass index [BMI] 37.0-37.9, adult; N40.0 Benign prostatic hyperplasia without lower urinary tract symptoms; I45.10 Unspecified right bundle-branch block; G40.909 Epilepsy, unspecified, not intractable, without status epilepticus
CPT/HCPCS: 36415; 36600; 71045; 71275; 80053; 80178; 81003; 82803; 83605; 83690; 83735; 83880; 84100; 84443; 84484; 85025; 85610; 87040; 87070; 87150; 87430; 93005; 93306; 94640; 94660; 96361; 96365; 96366; 96372; 96375; 96376; 99284; 99285; A9270; G0378; J1650; Q9967; 80306; 80320; 81001; 81599; 87086; 96374

== ENCOUNTER 2018-01-05 09:24 | Outpatient (CLI) | payer MEDICARE | END 2018-01-05 09:25 | disposition home or self-care (01) | LOC: LAB.F 09:24 | PROVIDERS: ATTEND Nurse Practitioner Family | DX: Z53.9 Procedure and treatment not carried out, unspecified reason (principal) ==

== ENCOUNTER 2018-01-12 16:45 | Emergency (ER) | payer MEDICARE ==
[2018-01-12] MEDS ORDERED: AMPICILLIN/SULBACTAM 3 GM in SODIUM CHLORIDE 0.9% MINIBAG 100 ML IV STA (18:18)
[2018-01-12] MEDS ORDERED: SODIUM CHLORIDE 0.9% 1,000 ML IV ONE (18:18)
--- NOTE | 2018-01-12 18:26 | ED Physician Documentation ---
ED Addendum - Addendum Addendum: 01/12/18 18:21 pt placed in fast track as a level 4 dental pain at 6 PM so I went to see him at [id number] male with underlying HTN CHF pulm dz ( maybe sleep apnea, recent admit for hypercapneic resp failure) and mental health dz seen by his dentist today for a dental infection - apparently had xrays in dental clinic was told source in lower L molar - and was then sent to [facility] ER for surgery and admission for IV antibiotics - pt does not have the records with him found pt with massive left facial swelling primarily to cheek and mandible and extending somewhat under jaw, trismus and sig dental decay RRR CTAB not actually a fast track pt Dr [place] so pt will likely need transfer to a facility with maxillofacial surgery admissions counselor may need a CT face with IV con if GFR OK ordered IV, blood cx lactate labs, IV unasyn, cultured drainage spont dripping from pt cheek and updated next shift, 01/12/18 18:26 01/12/18 19:48
[2018-01-12 19:09] LABS: BASOPHILS # (AUTO) 0.2 10^3/uL (0.0-0.1); BASOPHILS % (AUTO) 1.4 %; EOSINOPHILS # (AUTO) 0.1 10^3/uL (0.0-0.7); EOSINOPHILS % (AUTO) 0.9 %; HGB - HEMOGLOBIN 14.2 g/dL (14.0-18.0); LYMPHOCYTES # (AUTO) 1.3 10^3/uL (1.5-3.5); MEAN CORPUSCULAR HEMOGLOBIN 29.7 pg (27.0-31.0); MEAN CORPUSCULAR HGB CONC 33.6 g/dL (32.0-36.0); MEAN CORPUSCULAR VOLUME 88.2 fL (80.0-94.0); MEAN PLATELET VOLUME 7.5 fL (7.4-11.4); MONOCYTES % (AUTO) 7.9 %; NEUTROPHILS # (AUTO) 10.1 10^3/uL (1.5-6.6); NEUTROPHILS % (AUTO) 79.8 %; PLT - PLATELET COUNT 303 10^3/uL (130-450); RED CELL DISTRIBUTION WIDTH 13.7 % (12.0-15.0); WHITE BLOOD COUNT 12.6 x10^3/uL (4.8-10.8)
[2018-01-12 19:20] LABS: CREATININE 0.7 mg/dL (0.6-1.2)
[2018-01-12] MEDS ORDERED: NICOTINE 14 MG PATCH TOP STA (19:35)
[2018-01-12] MEDS ORDERED: MORPHINE 10 MG/ML VIAL IVP STA ×2 (19:35→21:30)
[2018-01-12] MEDS ORDERED: IOPAMIDOL-300 100 ML VIAL ONE (20:19)
[2018-01-12] MEDS ORDERED: IOPAMIDOL-300 100 ML VIAL IVP ONE (21:05)
--- NOTE | 2018-01-12 21:30 | CT Report ---
Reason: facial abscess maxillary area Procedure Date: 01/12/2018 Accession Number: [id number] / [id number] Procedure: CT - Facial Bones W/ CPT Code: FULL RESULT: EXAM: CT MAXILLOFACIAL WITH CONTRAST EXAM DATE: 01/12/2018 09:04 PM. CLINICAL HISTORY: Facial abscess right facial swelling for 1 week with pain. COMPARISONS: None. TECHNIQUE: Thin-section axial images were acquired of the face after administration of intravenous contrast. Post-processing: Coronal and sagittal reformats. Other: None. IV contrast: 100 ML ISOVUE 300. In accordance with CT protocol optimization, one or more of the following dose reduction techniques were utilized for this exam: automated exposure control, adjustment of mA and/or KV based on patient size, or use of iterative reconstructive technique. Findings: Relevant images are indicated (image number, series number). Most posterior right mandibular molar demonstrates periapical lucencies suggestive of apical cyst formation (125, 7) remaining dentition appears intact. There is a large multiloculated abscess overlying the right mandible, right maxilla (43, 4; 64, 6), and measures 4.9 x 5.0 x 6.2 cm AP by transverse by sagittal, extensive surrounding cellulitis/edema is present. No gross bony destructive loss. Extensive thickening of the right cervical fascial fascia. Reactive right internal jugular nodes, no necrotic morphology. Vallecula clear, epiglottis negative, airway patent. Remaining oral cavity negative. Limited evaluation intracranial contents negative, orbital contents negative. Mild right maxillary sinus mucosal thickening. Mild bifrontal, bilateral anterior ethmoidal sinus mucosal thickening. Small fluid density opacification right mastoid air cells, left mastoid air cells are clear. Impressions: 1. Large multiloculated abscess overlying the right maxilla, right mandible maximum dimension of the 6.2 cm. Extensive right facial cellulitis. No subcutaneous gas. 2. Most posterior right maxillary molar apical lucencies suggestive of developing apical cyst. Correlate with dental imaging. No gross bony destructive process. 3. Some mild scattered paranasal sinus mucosal thickening as described. 4. Remainder of the study is unremarkable. RADIA
--- NOTE | 2018-01-12 21:34 | ED Physician Documentation ---
PD HPI HEENT - Stated complaint Stated Complaint: RT FACE SWELL/TOOTH - Chief complaint Chief Complaint: Heent - History obtained from History obtained from: Patient - History of Present Illness Timing - onset: How many weeks ago (1) Timing - duration: Weeks (1) Timing - details: Gradual onset (He had onset of right lower molar pain about a week ago with some swelling. He saw his dentist who put him on some amoxicillin for a dental infection. Over the subsequent several days he continued to have pain and swelling in that area which increased. Then in the last couple of days he has had a considerable increase in swelling in the right face and cheek. He went back to his dentist today who obviously saw a large abscess and referred him to the ER for drainage. The patient states it is painful for him to open his mouth and has been having just liquids last several days. He denies any feeling of lump or swelling with swallowing. He denies any trouble breathing. He has not had any fevers but has felt chills over the last few days. He has not had any vomiting or diarrhea.) Location: Tooth (initially right lower molar, but now with large swelling right cheek and mandible area.) Worsens: Swalllowing Associated symptoms: Trismus, Facial swelling. No: Fever (but has had chills the past few days), Congestion, Unable to swallow (but painful for mouth opening), Headache Similar symptoms before: Has not had sx before Recently seen: Clinic (dentist last week and again today) Review of Systems Constitutional: reports: Chills. denies: Fever, Myalgias Nose: denies: Rhinorrhea / runny nose, Congestion Throat: reports: Dental pain / toothache, Oral lesions / sores. denies: Sore throat Cardiac: denies: Chest pain / pressure Respiratory: denies: Dyspnea GI: denies: Abdominal Pain, Nausea, Vomiting Skin: denies: Rash Neurologic: reports: Generalized weakness. denies: Focal weakness, Numbness PD PAST MEDICAL HISTORY - Past Medical History Cardiovascular: Congestive heart failure, Hypertension Respiratory: Sleep apnea Neuro: Seizure disorder Endocrine/Autoimmune: None GI: GERD : Benign prostate hypertrophy HEENT: None Psych: Bipolar disorder Musculoskeletal: None Derm: None - Past Surgical History Past Surgical History: Yes General: Cholecystectomy - Present Medications Home Medications: Ambulatory Orders Medication Instructions Recorded Confirmed Ziprasidone [Geodon] 80 mg PO BID 05/21/14 12/28/17 lamoTRIgine [Lamictal] 150 mg PO BID 05/21/14 12/28/17 Omeprazole 20 mg PO DAILY #60 capsule. 07/27/14 12/28/17 Saw [place] 160 mg PO DAILY #60 capsule 05/22/16 12/28/17 Finasteride 5 mg PO DAILY 12/28/17 12/28/17 Lisinopril 40 mg PO DAILY 12/28/17 12/28/17 OLANZapine [Olanzapine] 5 mg PO DAILY 12/28/17 12/28/17 Tamsulosin [Flomax] 0.4 mg PO BID 12/28/17 12/28/17 - Allergies Allergies/Adverse Reactions: Allergies Allergy/AdvReac Type Severity Reaction Status Date / Time No Known Drug Allergies Allergy Verified 01/12/18 16:58 - Social History Does the pt smoke?: Yes Smoking Status: Current every day smoker Does the pt drink ETOH?: Yes Does the pt have substance abuse?: Yes - Immunizations Immunizations are current?: Yes - POLST Patient has POLST: No PD ED PE NORMAL - Vitals Vital signs reviewed: Yes - General General: Alert and oriented X 3, No acute distress, Well developed/nourished - HEENT HEENT: Other (very large obvious abscess right cheek and mandible area with pointing of it in lateral mandible area. Normal sensation of face and lips, and normal lip/facial movement (except as impeded by the swelling). There is tenderness and redness of the face from cheek to upper neck. Normal voice and breathing. There is tenderness and swelling intraorally around right posterior molar and lateral sublingual area. ) - Neck Neck: Supple, no meningeal sign, Other (anterior adenopathy noted. ) - Cardiac Cardiac: RRR, No murmur - Respiratory Respiratory: No respiratory distress, Clear bilaterally - Abdomen Abdomen: Soft, Non tender - Derm Derm: Normal color, Warm and dry - Neuro Neuro: Alert and oriented X 3, clinic nurse 2-12 intact, No motor deficit, No sensory deficit, Normal speech Results - Vitals Vitals: Vital Signs - 24 hr 01/12/18 01/12/18 16:56 20:05 Temperature 37.6 C H 37.6 C H Heart Rate 74 Respiratory 18 Rate Blood Pressure 148/71 H O2 Saturation 94 Oxygen O2 Source Room air - Labs Labs: Microbiology 01/12/18 18:18 Wound Culture - Preliminary Face - Other Laboratory Tests 01/12/18 01/12/18 01/12/18 18:45 18:45 18:45 WBC 12.6 H RBC 4.80 Hgb 14.2 Hct 42.4 MCV 88.2 MCH 29.7 MCHC 33.6 RDW 13.7 Plt Count 303 MPV 7.5 Neut # (Auto) 10.1 H Lymph # (Auto) 1.3 L Pender # (Auto) 1.0 Eos # (Auto) 0.1 Baso # (Auto) 0.2 H Absolute Nucleated RBC 0.00 Nucleated RBC % 0.0 Sodium 135 Potassium 4.1 Chloride 96 L Carbon Dioxide 31 Anion Gap 8.0 BUN 10 Creatinine 0.7 Estimated GFR (MDRD) 116 Glucose 102 H Lactic Acid 0.7 Calcium 9.0 - Rads (name of study) facial CT Radiology: Prelim report reviewed (Large small multiloculated abscess overlying the right mandible, right maxilla and measures 5 x 5 x 6.2 cm. There is extensive surrounding cellulitis and edema. There is thickening of the right cervical facial fascia. There is a reactive right internal jugular nodes. There is no necrotic morphology.) Procedures - Abscess I&D (location) right face/mandible Preparation: Lidocaine 1%, With epi Incision: Incised with scalpel, Purulent drainage (large amount of oozing drainage, about 100 ml probably, but there still feels to be more swelling around the area.), Irrigated, Culture obtained. No: Packed PD MEDICAL DECISION MAKING - ED course Complexity details: reviewed results, re-evaluated patient (he has less pressure feeling of the abscess after drainage, but there is still extensive swelling, and the CT showed loculated abscesses, so I feel he needs for extensive debridement and drainage. [facility] did not have beds available. Than most available maxillofacial and oral surgery availability was at [facility]. The images were pushed down and I talked with Dr. Fran Aguilar who is on-call for [place]. He accepted transfer the patient to the ER for initial evaluation and potential bedside surgical debridement and drainage. They will reassess whether he needs hospitalization at that point. He may be discharged from the ER after the procedure. I advised the patient of this and he said he would work on getting a ride home for the morning. At this time of night with the transfer and procedure it would likely be the quality systems technician before he would be available for discharge from the ER and he said he could at least get a bus at that point.), considered differential, d/w patient Departure - Departure Disposition: 02 Transfer Acute Care Hosp Clinical Impression: Facial abscess, Dental infection Condition: Stable Record reviewed to determine appropriate education?: Yes
[2018-01-12] MEDS ORDERED: DEXAMETHASONE 10 MG/ML VIAL IVP STA (22:06)
[2018-01-12 23:06] VITALS: BP 149/81
== END 2018-01-13 00:11 | disposition short-term general hospital (02) ==
LOC: ED 16:45
DX: M27.2 Inflammatory conditions of jaws (principal); L02.01 Cutaneous abscess of face; K04.7 Periapical abscess without sinus; I10 Essential (primary) hypertension; I50.9 Heart failure, unspecified; F17.200 Nicotine dependence, unspecified, uncomplicated
CPT/HCPCS: 36415; 41800; 70487; 80048; 83605; 85025; 87040; 87070; 87205; 96365; 96375; 96376; 99283; 99284; A9270; Q9967

== ENCOUNTER 2018-02-03 08:36 | Outpatient (CLI) | payer MEDICARE ==
[2018-02-03 10:57] LABS: CALCIUM 9.1 mg/dL (8.5-10.3); CREATININE 0.9 mg/dL (0.6-1.2)
[2018-02-03 11:13] LABS: MEAN CORPUSCULAR VOLUME 88.2 fL (80.0-94.0); MEAN PLATELET VOLUME 8.8 fL (7.4-11.4); RED BLOOD COUNT 5.01 10^6/uL (4.70-6.10); RED CELL DISTRIBUTION WIDTH 15.1 % (12.0-15.0); WHITE BLOOD COUNT 7.6 x10^3/uL (4.8-10.8)
== END 2018-02-03 08:37 | disposition home or self-care (01) ==
LOC: LAB.F 08:36
PROVIDERS: ATTEND Nurse Practitioner Family
DX: R63.5 Abnormal weight gain (principal); J44.9 Chronic obstructive pulmonary disease, unspecified; I10 Essential (primary) hypertension; Z79.899 Other long term (current) drug therapy
CPT/HCPCS: 36415; 80048; 83880; 85027

== ENCOUNTER 2018-02-23 08:00 | Outpatient (CLI) | payer MEDICARE | END 2018-02-23 23:59 | disposition home or self-care (01) | LOC: LAB.R 08:00 | PROVIDERS: ATTEND Nurse Practitioner Family | DX: L02.01 Cutaneous abscess of face (principal) | CPT/HCPCS: 87070; 87075; 87076; 87185; 87205 ==

== ENCOUNTER 2018-04-13 12:08 | Outpatient (CLI) | payer MEDICARE | END 2018-04-13 12:09 | disposition home or self-care (01) | LOC: EMS 12:08 | PROVIDERS: ATTEND Surgery | DX: R06.02 Shortness of breath (principal); F17.210 Nicotine dependence, cigarettes, uncomplicated; Z79.51 Long term (current) use of inhaled steroids | CPT/HCPCS: A0425; A0427 ==

== ENCOUNTER 2018-06-07 11:46 | Outpatient (CLI) | payer MEDICARE, MEDICAID ==
[2018-06-07 17:37] LABS: BASOPHILS % (AUTO) 0.6 %; EOSINOPHILS # (AUTO) 0.2 10^3/uL (0.0-0.7); EOSINOPHILS % (AUTO) 3.3 %; HGB - HEMOGLOBIN 14.4 g/dL (14.0-18.0); LYMPHOCYTES # (AUTO) 1.5 10^3/uL (1.5-3.5); LYMPHOCYTES % (AUTO) 23.9 %; MEAN CORPUSCULAR HEMOGLOBIN 28.9 pg (27.0-31.0); MEAN CORPUSCULAR HGB CONC 32.9 g/dL (32.0-36.0); MEAN CORPUSCULAR VOLUME 87.8 fL (80.0-94.0); MEAN PLATELET VOLUME 8.9 fL (7.4-11.4); MONOCYTES # (AUTO) 0.5 10^3/uL (0.0-1.0); MONOCYTES % (AUTO) 8.2 %; NEUTROPHILS # (AUTO) 3.9 10^3/uL (1.5-6.6); PLT - PLATELET COUNT 208 10^3/uL (130-450); RED BLOOD COUNT 4.98 10^6/uL (4.70-6.10); RED CELL DISTRIBUTION WIDTH 15.5 % (12.0-15.0); WHITE BLOOD COUNT 6.1 x10^3/uL (4.8-10.8)
[2018-06-07 17:53] LABS: CALCIUM 9.2 mg/dL (8.5-10.3); CREATININE 0.8 mg/dL (0.6-1.2)
== END 2018-06-07 11:47 | disposition home or self-care (01) ==
LOC: LAB.F 11:46
PROVIDERS: ATTEND Nurse Practitioner Family
DX: L03.119 Cellulitis of unspecified part of limb (principal); I50.9 Heart failure, unspecified
CPT/HCPCS: 36415; 80048; 85025

== ENCOUNTER 2019-04-30 12:58 | Emergency (ER) | payer MEDICARE, MEDICAID ==
[2019-04-30] MEDS ORDERED: ZIPRASIDONE 20 MG CAPSULE PO STA (13:22)
--- NOTE | 2019-04-30 13:26 | ED Physician Documentation ---
History of Present Illness - Stated complaint Stated Complaint: MED REFILL - Chief complaint Chief Complaint: General - History obtained from History obtained from: Patient - History of Present Illness Timing: Other (He is having a lot of troubles with his pharmacy and has been out of his Geodon for the last 5 days. He is not sleeping well, but denies hallucinations. Declines consideration for inpatient stabilization. Just wants a refill of his Geodon.) Review of Systems Cardiac: denies: Chest pain / pressure, Palpitations Respiratory: denies: Dyspnea, Cough Neurologic: denies: Generalized weakness, Focal weakness Psychiatric: reports: Anxiety, Insomnia. denies: Depressed, Suicidal, Homicidal, Hallucinations, Delusions PD PAST MEDICAL HISTORY - Past Medical History Cardiovascular: Congestive heart failure, Hypertension Respiratory: Sleep apnea Neuro: Seizure disorder Endocrine/Autoimmune: None GI: GERD : Benign prostate hypertrophy HEENT: None Psych: Bipolar disorder Musculoskeletal: None Derm: None - Past Surgical History Past Surgical History: Yes General: Cholecystectomy - Present Medications Home Medications: Ambulatory Orders Medication Instructions Recorded Confirmed Ziprasidone [Geodon] 80 mg PO BID 05/21/14 12/28/17 lamoTRIgine [Lamictal] 150 mg PO BID 05/21/14 12/28/17 Omeprazole 20 mg PO DAILY #60 capsule. 07/27/14 12/28/17 Saw [place] 160 mg PO DAILY #60 capsule 05/22/16 12/28/17 Finasteride 5 mg PO DAILY 12/28/17 12/28/17 OLANZapine [Olanzapine] 5 mg PO DAILY 12/28/17 12/28/17 Tamsulosin [Flomax] 0.4 mg PO BID 12/28/17 12/28/17 lisinopriL [Lisinopril] 40 mg PO DAILY 12/28/17 12/28/17 Ziprasidone HCl [Geodon] 80 mg PO BID #60 capsule 04/30/19 - Allergies Allergies/Adverse Reactions: Allergies Allergy/AdvReac Type Severity Reaction Status Date / Time No Known Drug Allergies Allergy Verified 04/30/19 13:09 - Social History Does the pt smoke?: Yes Smoking Status: Current every day smoker Does the pt drink ETOH?: Yes Does the pt have substance abuse?: Yes - Immunizations Immunizations are current?: Yes - POLST Patient has POLST: No PD ED PE NORMAL - Vitals Vital signs reviewed: Yes - General General: Alert and oriented X 3, No acute distress - HEENT HEENT: PERRL, EOMI - Neck Neck: Supple, no meningeal sign, No bony TTP - Neuro Neuro: Alert and oriented X 3, Normal speech Results - Vitals Vitals: Vital Signs - 24 hr 04/30/19 13:09 Temperature 36.6 C Heart Rate 74 Respiratory 14 Rate Blood Pressure 167/91 H O2 Saturation 96 Oxygen O2 Source Room air Departure - Departure Disposition: 01 Home, Self Care Clinical Impression: Bipolar 1 disorder, Medication refill Condition: Good Record reviewed to determine appropriate education?: Yes Instructions: ED Manic Depression, Ziprasidone capsules Prescriptions: Ziprasidone HCl [Geodon] 80 mg PO BID #60 capsule Comments: Follow-up with your regular psychiatric provider as soon as possible. Return for new or worsening symptoms or if you change your mind about inpatient stabilization.
[2019-04-30 13:31] VITALS: BP 188/104
== END 2019-04-30 13:39 | disposition home or self-care (01) ==
LOC: ED 12:58
DX: Z76.0 Encounter for issue of repeat prescription (principal); F31.9 Bipolar disorder, unspecified; I10 Essential (primary) hypertension; F17.200 Nicotine dependence, unspecified, uncomplicated
CPT/HCPCS: 99282; 99283; A9270

== ENCOUNTER 2019-08-01 18:37 | Outpatient (CLI) | payer MEDICARE, MEDICAID | END 2019-08-01 18:38 | disposition E | LOC: EMS 18:37 | PROVIDERS: ATTEND Surgery ==